=== PATIENT | male | born 1960 | race African-American/Black ===

== ENCOUNTER 2021-10-28 16:11 | Emergency (ER) | payer OTHER, MEDICAID ==
[~2021-10-28] VITALS: Ht 177.8 cm; Wt 113.0 kg
[2021-10-28] MEDS ORDERED: ALBUTEROL (0.083%) 2.5MG/3ML NEB HHN STA (16:26)
[2021-10-28] MEDS ORDERED: ACETAMINOPHEN 325MG TABLET PO ONE (16:30)
[2021-10-28 17:48] VITALS: BP 142/92
== END 2021-10-28 17:49 ==
LOC: ER 16:11
DX: J45.901 Unspecified asthma with (acute) exacerbation (principal); I10 Essential (primary) hypertension; G89.29 Other chronic pain; M25.512 Pain in left shoulder; E78.00 Pure hypercholesterolemia, unspecified; Z88.0 Allergy status to penicillin
CPT/HCPCS: 71045; 73030; 94640; 99284; Z7610